=== PATIENT | female | born 1955 | race Two or more races ===

== ENCOUNTER 2025-03-28 13:36 | Inpatient (IN) | payer MEDICAID, OTHER ==
[~2025-03-28] VITALS: Ht 149.9 cm; Wt 41.6 kg
[2025-03-28 14:32] LABS: Hematocrit 40.3 % (36.0-46.0); Hemoglobin 13.8 g/dL (12.2-16.2); Mean Corpuscular Hemoglobin 31.1 pg (28.0-32.0); Mean Corpuscular Volume 90.8 fL (80.0-100.0); Nucleated Red Blood Cells % 0.0 %
[2025-03-28 14:44] LABS: Anion Gap 3 (5-15); Carbon Dioxide 31 mmol/L (20-31); Chloride 107 mmol/L (98-107); Potassium 4.4 mmol/L (3.5-5.1); Sodium 141 mmol/L (136-145)
[2025-03-28 14:45] LABS: Calcium 9.3 mg/dL (8.7-10.4)
[2025-03-28 14:50] LABS: BUN/Creatinine Ratio 10.4 (10.0-20.0); Glucose 83 mg/dL (74-106)
[2025-03-28 14:52] LABS: Blood Urea Nitrogen 7 mg/dL (9-23)
--- NOTE | 2025-03-28 14:55 | ED.PDOC ---
History of Present Illness HPI Comments 69 year old female presents to the ED with a chief complaint of generalized weakness onset months. Patient states she has been experiencing weakness and generalized body pain since COVID in 2019. 1 week ago, patient experienced a syncopal episode, since then has been experiencing dizziness, headache, symptoms have worsened, poor appetite. Denies fever, chills, nausea,vomiting, diarrhea, chest pain,shortness of breath, abdominal pain, dysuria. No other symptoms or modifying factors present at this time. Chief Complaint: General Weakness Time Seen by MD: 14:40 Reviewed Notes: Medications, Allergies Allergies: Coded Allergies: NO KNOWN ALLERGIES (Unverified , 03/28/25) Information Source: Patient, Relative Mode of Arrival: Ambulatory Severity: Moderate Timing: Months Duration: Since onset Prehospital treatment: None Past Medical History PAST MEDICAL HISTORY: Denies Surgical History: Denies all surgeries TROMBONE SLIDE ASSEMBLER History: No Pertinent TROMBONE SLIDE ASSEMBLER History Family History Family History: Reviewed,noncontributory to illness, No family hx of Cancer, No family hx of DM, No family hx of Heart chava, No family hx of HTN, No family hx ofKidney chava, No family hx of Liver chava, No family hx of Lung chava, No family hx of Stroke Social History Smoker: Non-Smoker Alcohol: Denies ETOH Use Drugs: Denies Drug Use Lives In: Home Constitutional: reports: weakness, others (generalized body pain); denies: chills, diaphoresis, fatigue, fever, malaise, sweats EENTM: denies: blurred vision, double vision, ear bleeding, ear discharge, ear drainage, ear pain, ear ringing, eye pain, eye redness, hearing loss, mouth pain, mouth swelling, nasal discharge, nose bleeding, nose congestion, nose pain, photophobia, tearing, throat pain, throat swelling, voice changes, others Respiratory: denies: cough, hemoptysis, orthopnea, SOB at rest, shortness of breath, SOB with excertion, stridor, wheezing, others Cardiovascular: denies: chest pain, dizzy spells, diaphoresis, Dyspnea on exertion, edema, irregular heart beat, left arm pain, lightheadedness, palpitations, PND, syncope, others Gastrointestinal: reports: poor appetite; denies: abdomen distended, abdominal pain, blood streaked bowels, constipated, diarrhea, dysphagia, difficulty swallowing, hematemesis, melena, nausea, poor fluid intake, rectal bleeding, rectal pain, vomiting, others Genitourinary: denies: abnormal vagina bleeding, burning, dyspareunia, dysuria, flank pain, frequency, hematuria, incontinence, pain, , vagina discharge, urgency, others Neurological: reports: dizziness, weakness; denies: fainting, headache, left sided numbness, left sided weakness, numbness, paresthesia, pre-existing deficit, right sided numbness, right sided weakness, seizure, speech problems, tingling, tremors, others Musculoskeletal: denies: back pain, gout, joint pain, joint swelling, muscle pain, muscle stiffness, neck pain, others Integumetry: denies: bruises, change in color, change in hair/nails, dryness, laceration, lesions, lumps, rash, wounds, others Allergic/Immunocompromised: denies: Difficulty Healing, Frequent Infections, Hives, Itching, others Hematologic/Lymphatic: denies: anemia, blood clots, easy bleeding, easy bruising, swollen glands, others Endocrine: denies: excessive hunger, excessive sweating, excessive thirst, excessive urination, flushing, intolerance to cold, intolerance to heat, unexplained weight gain, unexplained weight loss, others Psychiatric: denies: anxiety, bipolar disorder, depression, hopeless, panic disorder, schizophrenia, sleepless, suicidal, others All Other Systems: Reviewed and Negative Physical Exam General Appearance: Moderate Distress, Normal HEENT: Normal ENT Inspection, Pharynx Normal, TMs Normal Neck: Full Range of Motion, Non-Tender, Normal, Normal Inspection Respiratory: Chest Non-Tender, Lungs Clear, No Accessory Muscle Use, No R espiratory Distress, Normal Breath Sounds Cardiovascular: No Edema, No JVD, No Murmur, No Gallop, Normal Peripheral Pulses, Regular Rate/Rhythm Breast Exam: Deferred Gastrointestinal: No Organomegaly, Non Tender, No Pulsatile Mass, Normal Bowel Sounds, Soft Genitalia: Deferred Pelvic: Deferred Rectal: Deferred Extremities: No calf tenderness, Normal capillary refill, Normal inspection, Normal range of motion, Non-tender, No pedal edema Musculoskeletal : Apperance: Normal Neurologic: Alert, ems educator II-XII nml as Tested, No Motor Deficits, Normal Affect, Normal Mood, No Sensory Deficits Cerebellar Function: Normal Reflexes: Normal Skin: Dry, Normal Color, Warm Peripheral Pulses: 3+ Radial (R), 3+ Radial (L) Lymphatic: No Adenopathy Was a procedure done? Was a procedure done?: No Differential Dx Considerations may include: Anemia Electrolyte imbalance X-Ray, Labs, Meds, VS Vital Signs Date Time Temp Pulse Resp B/P (MAP) Pulse Ox O2 Delivery O2 Flow Rate FiO2 03/28/25 16:30 59 18 166/78 (107) 100 03/28/25 16:13 57 18 96 Room Air 03/28/25 13:46 78 03/28/25 13:37 97.8 76 20 177/94 96 97.8 Lab Test 03/28/25 15:04 03/28/25 14:16 Range/Units Troponin I High Sensitivity 131 *H 136 *H </=34 ng/L White Blood Count 5.5 4.4-10.8 10^3/uL Red Blood Count 4.44 4.0-5.20 10^6/uL Hemoglobin 13.8 12.2-16.2 g/dL Hematocrit 40.3 36.0-46.0 % Mean Corpuscular Volume 90.8 80.0-100.0 fL Mean Corpuscular Hemoglobin 31.1 28.0-32.0 pg Mean Corpuscular Hemoglobin Concent 34.3 32.0-36.0 g/dL Red Cell Distribution Width 13.5 11.8-14.3 % Platelet Count 191 140-450 10^3/uL Mean Platelet Volume 8.8 6.9-10.8 fL Neutrophils (%) (Auto) 60.6 37.0-80.0 % Lymphocytes (%) (Auto) 31.2 10.0-50.0 % Monocytes (%) (Auto) 6.5 0.0-12.0 % Eosinophils (%) (Auto) 1.2 0.0-7.0 % Basophils (%) (Auto) 0.5 0.0-2.0 % Neutrophils # (Auto) 3.4 1.6-8.6 10 ^3/uL Lymphocytes # (Auto) 1.7 0.4-5.4 10 ^3/uL Monocytes # (Auto) 0.4 0-1.3 10 ^3/uL Eosinophils # (Auto) 0.1 0-0.8 10 ^3/uL Basophils # (Auto) 0 0-0.2 10 ^3/uL Nucleated Red Blood Cells 0.0 % Sodium Level 141 136-145 mmol/L Potassium Level 4.4 3.5-5.1 mmol/L Chloride Level 107 98-107 mmol/L Carbon Dioxide Level 31 20-31 mmol/L Anion Gap 3 L 5-15 Blood Urea Nitrogen 7 L 9-23 mg/dL Creatinine 0.67 0.550-1.02 mg/dL Glomerular Filtration Rate Calc 95 >90 mL/min BUN/Creatinine Ratio 10.4 10.0-20.0 Serum Glucose 83 74-106 mg/dL Calcium Level 9.3 8.7-10.4 mg/dL Patient alert. Vitals stable. Vague symptoms. Answering questions. WBC within normal limits pain Hemoglobin within normal limits. Abdomen is soft nontender. Ambulating. No leg swelling. No chest pain. Cardiac marker elevated. Was given aspirin. Was given Lovenox. Explained to the patient. Continue monitoring. Time of 1ST Reevaluation: 15:10 Reevaluation 1ST: Improved Patient Education/Counseling: Diagnosis, Treatment, Prognosis Family Education/Counseling: Diagnosis, Treatment, Prognosis SEPSIS Sepsis Screen Date sepsis recognized/suspect: Mar 28, 2025 Time Sepsis recognized/suspect: 8 Recent Procedure: No On Antibiotic Therapy: No Respiratory Rate >20: No Heart Rate >90: No Temp<36 C (96.8 F) or >38.3 C: No SBP <90 or MAP <65 mmHG: No New Acute Mental Status Change: No Is the patient on CPAP, BIPAP,: No Physician Orders Electrocardigram (03/28/25 13:53) Urinalysis (03/28/25 13:55) Troponin-I Hs (03/28/25 16:55) Vital Signs Date Time Temp Pulse Resp B/P (MAP) Pulse Ox O2 Delivery O2 Flow Rate FiO2 03/28/25 16:30 59 18 166/78 (107) 100 03/28/25 16:13 57 18 96 Room Air 03/28/25 13:46 78 03/28/25 13:37 97.8 76 20 177/94 96 97.8 Laboratory Tests Test 03/28/25 14:16 White Blood Count 5.5 10^3/uL (4.4-10.8) Departure 1 Departure Time of Disposition: 15:31 Impression: Primary Impression: NSTEMI (non-ST elevated myocardial infarction) Disposition: 09 ADMITTED INPATIENT Admit to: Med Surg Condition: Guarded Critical Care Note Critical Care Time?: Yes (90 min-critical care time only) Stability Stability form required: No Heart Score Heart Score: Heart Score Response (Comments) Value History N/A 0 EKG N/A 0 Age N/A 0 Risk Factors N/A 0 Troponin N/A 0 Total 0 I personally scribed for ALINE PERERA MD ([email or web address]) on 03/28/25 at 14:54. Electronically submitted by Renata Teague ([email or web address]). ALINE PERERA MD Mar 28, 2025 14:54
[2025-03-28] MEDS: ENOXAPARIN SOD 60 MG/0.6 ML SYRINGE SC ONE (17:45)
[2025-03-28 19:10] LABS: Urine Protein, UAD TRACE (Negative)
--- NOTE | 2025-03-28 22:47 | DVHHPRES ---
History of Present Illness Resident Creating Document: EULALIO SALCEDO RESIDENT History of Present Illness Mathew Weaver is 69-year-old female with no significant past medical history presents to the ED with chief complaints of overall generalized weakness, 8/10 dull pain which is in the posterior side of neck radiating to bilateral legs, which increases while walking, decreases with rest. She states that with increased exertion there is increase in diffuse abdominal pain. Patient says she has had loss of appetite since 1 year, is nauseous most of the time, has a headache most days for which she takes Advil. Patient also states that she has a bowel movement every 3 days. She states that since 2019 after getting COVID, vaccinations patient has intense headaches and the pain would radiate from the neck to bilateral legs, she would lose balance, feels weak after taking a for a couple of steps. On arrival patient was hypotensive, troponins were elevated. Urinalysis shows signs of UTI. Patient is admitted for further management. Surgical history, denies Family history: Noncontributory Personal history: Patient smoked 3-4 cigarettes a day for more than 30 years, denies drinking, or Drug abuse Review of Systems Constitutional: Yes: Weakness; No: Fever, Chills, Sweats, Malaise, Other Eyes: No: Pain, Vision change, Conjunctivae inflammation, Eyelid inflammation, Other, Redness ENT: No: Ear pain, Ear discharge, Nose pain, Nose discharge, Nose congestion, Mouth pain, Mouth swelling, Throat pain, Throat swelling, Other Respiratory: No: Cough, Dry, Shortness of breath, SOB with excertion, Wheezing, Hemoptysis, Pleuritic Pain, Sputum, Wheezing, Other Cardiovascular: No: Chest Pain, Palpitations, Orthopnea, Paroxysmal Noc. Dyspnea, Edema, Lt Headedness, Other Gastrointestinal: Nausea, Abdominal Pain; No: Vomiting, Diarrhea, Constipation, Melena, Hematochezia, Other Genitourinary: No Dysuria, No Frequency, No Incontinence, No Hematuria, No Retention, No Other Musculoskeletal: neck pain, back pain, leg pain; No: other, shoulder pain, arm pain, hand pain, foot pain Skin: No: Rash, Lesions, Jaundice, Bruising, Other Neurological: No: Weakness, Numbness, Incoordination, Change in speech, Confusion, Seizures, Other Allergies: Coded Allergies: NO KNOWN ALLERGIES (Unverified , 03/28/25) Exam Vital Signs Vital Signs Date Time Temp Pulse Resp B/P (MAP) Pulse Ox O2 Delivery O2 Flow Rate FiO2 03/28/25 20:26 98.7 69 20 158/80 (106) 100 98.7 03/28/25 16:13 Room Air Exam General: Patient alert and oriented in person, place and time. Patient following commands. Moderate distress HEENT: Normocephalic, atraumatic, moist mucous membranes Respiratory/pulmonary: Clear lungs bilaterally, vesicular murmurs present in almost all lung shoemaker, no associated crackles or wheezes. Cardiovascular: Normal heart sounds S1 and S2 with no associated murmurs Abdomen: Abdomen nondistended, there is no pain to palpation in any of the abdominal quadrants, no palpable masses. Extremities: There is no peripheral edema present at the lower extremities. Peripheral Pulses: 3+ Radial (R). 3+ Radial (L). 3+ Dorsalis pedis (R). 3+ Dorsalis pedis(L) Skin: No rashes or pruritus, there is no sacral edema present at this time. Neurological: Intact cranial nerves with no focal neurologic deficits Labs/Xrays Labs Test 03/28/25 18:52 03/28/25 17:27 03/28/25 14:16 Range/Units Urine Color Yellow Yellow Urine Clarity Clear Clear Urine pH 6.5 5.0-9.0 Urine Specific [place] 1.020 1.001-1.035 Urine Protein Trace H Negative Urine Ketones Negative Negative Urine Blood 1+ H Negative /uL Urine Nitrite Negative Negative Urine Bilirubin Negative Negative Urine Urobilinogen 2 H Negative mg/dL Urine Leukocyte Esterase 1+ Negative /uL Urine RBC 12 0 - 4 /hpf Urine Microscopic WBC 2 0-5 /HPF Urine Squamous Epithelial Cells Few <5 /hpf Urine Bacteria Few H None Seen /hpf Urine Mucus Few None Seen Urine Glucose Normal Normal mg/dL Troponin I High Sensitivity 145 *H </=34 ng/L White Blood Count 5.5 4.4-10.8 10^3/uL Red Blood Count 4.44 4.0-5.20 10^6/uL Hemoglobin 13.8 12.2-16.2 g/dL Hematocrit 40.3 36.0-46.0 % Mean Corpuscular Volume 90.8 80.0-100.0 fL Mean Corpuscular Hemoglobin 31.1 28.0-32.0 pg Mean Corpuscular Hemoglobin Concent 34.3 32.0-36.0 g/dL Red Cell Distribution Width 13.5 11.8-14.3 % Platelet Count 191 140-450 10^3/uL Mean Platelet Volume 8.8 6.9-10.8 fL Neutrophils (%) (Auto) 60.6 37.0-80.0 % Lymphocytes (%) (Auto) 31.2 10.0-50.0 % Monocytes (%) (Auto) 6.5 0.0-12.0 % Eosinophils (%) (Auto) 1.2 0.0-7.0 % Basophils (%) (Auto) 0.5 0.0-2.0 % Neutrophils # (Auto) 3.4 1.6-8.6 10 ^3/uL Lymphocytes # (Auto) 1.7 0.4-5.4 10 ^3/uL Monocytes # (Auto) 0.4 0-1.3 10 ^3/uL Eosinophils # (Auto) 0.1 0-0.8 10 ^3/uL Basophils # (Auto) 0 0-0.2 10 ^3/uL Nucleated Red Blood Cells 0.0 % Sodium Level 141 136-145 mmol/L Potassium Level 4.4 3.5-5.1 mmol/L Chloride Level 107 98-107 mmol/L Carbon Dioxide Level 31 20-31 mmol/L Anion Gap 3 L 5-15 Blood Urea Nitrogen 7 L 9-23 mg/dL Creatinine 0.67 0.550-1.02 mg/dL Glomerular Filtration Rate Calc 95 >90 mL/min BUN/Creatinine Ratio 10.4 10.0-20.0 Serum Glucose 83 74-106 mg/dL Calcium Level 9.3 8.7-10.4 mg/dL SEPSIS Sepsis Screen Date sepsis recognized/suspect: Mar 28, 2025 Time Sepsis recognized/suspect: 2026 Recent Procedure: No On Antibiotic Therapy: No Respiratory Rate >20: No Heart Rate >90: No Temp<36 C (96.8 F) or >38.3 C: No SBP <90 or MAP <65 mmHG: No New Acute Mental Status Change: No Is the patient on CPAP, BIPAP,: No Physician Orders Electrocardigram (03/28/25 17:33) Vital Signs Date Time Temp Pulse Resp B/P (MAP) Pulse Ox O2 Delivery O2 Flow Rate FiO2 03/28/25 20:26 98.7 69 20 158/80 (106) 100 98.7 03/28/25 16:30 59 18 166/78 (107) 100 03/28/25 16:13 57 18 96 Room Air Laboratory Tests Test 03/28/25 14:16 White Blood Count 5.5 10^3/uL (4.4-10.8) Medications Medications Dose Ordered Sig/Leah Route Start Time Stop Time Status Last Admin Dose Admin Aspirin 325 mg ONCE ONCE PO 03/28/25 17:45 03/28/25 17:46 DC 03/28/25 17:45 325 MG Enoxaparin Sodium 50 mg ONCE ONCE SC 03/28/25 17:45 03/28/25 17:46 DC 03/28/25 17:45 50 MG Assessment/Plan Assessment/Plan Assessment and plan # hypertension crisis - EKG - IV enalaprilat - aspirin - atorvastatin - UA, CXR., consider Echo # NSTEMI type 2, type 1 not ruled out # demand ischemia due to hypertension - EKG - IV enalaprilat - aspirin - atorvastatin - carotid ultrasound, pending # microscopic hematuria ? Nephritis -ordered protein/creatinine ratio -kidney function # Tobacco use disorder -counselled for cessation # Cervicalgia -neck xray Plan discussed with: Patient Date of Service: Mar 28, 2025 Billing Provider: EULALIO SALCEDO Common Visit Codes: [id number] INP/OBS CARE (HIGH) Secondary Visit Codes: [id number] CARE PLAN 30 MINUTES EULALIO SALCEDO Mar 28, 2025 22:47 CATHIE MANJARREZ Mar 29, 2025 08:14 YESENIA PAGE MD Mar 29, 2025 19:35
[2025-03-28 23:49] VITALS: PULSE 60; RESP 20; O2SAT 97
[2025-03-29] VITALS (8 sets, daily range): BP systolic 118–166; BP diastolic 58–78; PULSE 44–68; RESP 16; TEMP 97.8–98.2; O2SAT 94–97
[2025-03-29 00:53] LABS: Alanine Aminotransferase 36 U/L (7-40); Albumin 3.9 g/dL (3.2-4.8); Alkaline Phosphatase 68 U/L (46-116); Total Protein 7.0 g/dL (5.7-8.2)
[2025-03-29 00:57] LABS: Bilirubin, Total 0.3 mg/dL (0.2-1.0)
[2025-03-29 01:44] LABS: Triglycerides 133 mg/dL (< 150)
[2025-03-29 01:45] LABS: Cholesterol 152 mg/dL (< 200)
[2025-03-29] MEDS: ENALAPRILAT 1.25 MG/ML-1ML VIAL IV ONE (01:45)
[2025-03-29] MEDS: ATORVASTATIN 20 MG TAB PO ONE (01:45)
[2025-03-29 01:46] LABS: Bilirubin, Direct < 0.1 mg/dL (<0.3); HDL Cholesterol 39 mg/dL (40-59)
[2025-03-29 02:19] LABS: INR 1.03 (0.9-1.15); Partial Thromboplastin Time 35.5 SEC (24.5-34.5); Prothrombin Time 10.9 sec (9.3-11.8)
[2025-03-29 02:28] LABS: Potassium 3.8 mmol/L (3.5-5.1); Sodium 142 mmol/L (136-145)
[2025-03-29 02:29] LABS: Anion Gap 6 (5-15); Calcium 8.8 mg/dL (8.7-10.4); Carbon Dioxide 28 mmol/L (20-31)
[2025-03-29 02:30] LABS: Chloride 108 mmol/L (98-107)
[2025-03-29 02:34] LABS: BUN/Creatinine Ratio 15.6 (10.0-20.0); Blood Urea Nitrogen 10 mg/dL (9-23); Glucose 113 mg/dL (74-106)
--- NOTE | 2025-03-29 03:52 | DVH ---
CHEST RADIOGRAPH Indication: htn Technique: Single frontal view of the chest was obtained COMPARISON: None FINDINGS: Lines and Tubes: None Lungs: Clear Pleura: No effusion. No pneumothorax. Cardiomediastinal contours: Unremarkable Bones: Unremarkable IMPRESSION: 1. No acute disease.
[2025-03-29 08:52] LABS: Urine Protein, UAD Negative (Negative)
[2025-03-29 09:02] LABS: Protein, Urine 18.4 mg/dL (1-14)
[2025-03-29 09:04] LABS: Amphetamine Screen, Urine Neg (NEGATIVE); Barbiturate Scree,Urine Neg (NEGATIVE); Benzodiazephine Screen, Urine Neg (NEGATIVE); Cannabinoid Screen, Urine Neg (NEGATIVE); Cocaine Screen, Urine Neg (NEGATIVE); Opiate Scree,Urine Neg (NEGATIVE); Phencyclidine Screen, Urine Neg (NEGATIVE)
--- NOTE | 2025-03-29 09:46 | DVH ---
INDICATION: neck pain COMPARISON: None TECHNIQUE: 3 views of the cervical spine were obtained. FINDINGS: Reversal of the cervical spine. Mild retrolisthesis of C4 on C5. The predental space is normal. Moderate multilevel degenerative disc disease of the cervical spine. No acute fracture, vertebral compression deformity or aggressive osseous lesions. The imaged lung apices are unremarkable. IMPRESSION: No acute fracture. Moderate multilevel degenerative disc disease of the cervical spine.
--- NOTE | 2025-03-29 09:58 | ECG ---
[facility] Test Date: 2025-03-29 Test Time: 02:29:35 Pat Name: HOU Department: Room: 0290T A Gender: F Nutrition Representative: MICHELLE : 1955 Requested By: ALINE PERERA Order Number: [id number] Reading MD: Jose Ballesteros Measurements Intervals [place] Rate: 65 P: -89 ND: 125 QRS: 11 QRSD: 108 T: 20 QT: 471 QTc: 490 Interpretive Statements Sinus or ectopic atrial rhythm Probable anteroseptal infarct, old Electronically Signed On 04-04-2025 19:07:11 PDT by Jose Ballesteros Please click the below link to view image of tracing.
--- NOTE | 2025-03-29 09:59 | ECG ---
[facility] Test Date: 2025-03-28 Test Time: 13:46:18 Pat Name: HOU Department: [facility] ED Room: 0290T A Gender: F Flute Grinder: dc : 1955 Requested By: BEULAH DALAL Order Number: [id number] Reading MD: Jose Ballesteros Measurements Intervals [place] Rate: 78 P: 0 IL: 113 QRS: 106 QRSD: 106 T: 23 QT: 402 QTc: 458 Interpretive Statements Sinus rhythm Borderline short [place] interval Lateral infarct, age indeterminate Probable anteroseptal infarct, old Baseline wander in lead(s) II,III,aVR,aVL,aVF,V1,V2 Electronically Signed On 04-04-2025 19:00:39 PDT by Jose Ballesteros Please click the below link to view image of tracing.
--- NOTE | 2025-03-29 10:14 | DVH ---
Carotid Duplex Date: 03/29/2025 07:07 AM Clinical History: uncontrolled htn Comparison: None Technique: Duplex Doppler evaluation of the extracranial carotid and vertebral arteries including col or Doppler and spectral/pulsed waveform analysis was performed. Findings: Velocities and ratios within normal limits. IMPRESSION: No hemodynamically significant stenosis noted in the right carotid system. No hemodynamically significant stenosis noted in the left carotid system. Reference: Radiology 2003; 229:[id number]
[2025-03-29 11:02] LABS: Hematocrit 35.8 % (36.0-46.0); Hemoglobin 12.2 g/dL (12.2-16.2); Mean Corpuscular Hemoglobin 31.0 pg (28.0-32.0); Mean Corpuscular Volume 91.3 fL (80.0-100.0); Nucleated Red Blood Cells % 0.1 %
[2025-03-29 11:15] LABS: Alanine Aminotransferase 30 U/L (7-40); Albumin 3.4 g/dL (3.2-4.8); Alkaline Phosphatase 57 U/L (46-116); Anion Gap 4 (5-15); BUN/Creatinine Ratio 15.9 (10.0-20.0); Blood Urea Nitrogen 10 mg/dL (9-23); Calcium 8.8 mg/dL (8.7-10.4); Carbon Dioxide 27 mmol/L (20-31); Cholesterol 140 mg/dL (< 200); Glucose 99 mg/dL (74-106); INR 1.03 (0.9-1.15); Magnesium 1.9 mg/dL (1.6-2.6); Partial Thromboplastin Time 31.0 SEC (24.5-34.5); Potassium 3.7 mmol/L (3.5-5.1); Prothrombin Time 10.9 sec (9.3-11.8); Sodium 141 mmol/L (136-145); Total Protein 6.3 g/dL (5.7-8.2); Triglycerides 132 mg/dL (< 150)
[2025-03-29 11:16] LABS: Bilirubin, Total 0.4 mg/dL (0.2-1.0); Chloride 110 mmol/L (98-107); HDL Cholesterol 36 mg/dL (40-59)
--- NOTE | 2025-03-29 13:14 | DVH ---
CT HEAD WITHOUT CONTRAST Indication: syncope EXAM DATE: 03/29/2025 11:47 AM COMPARISON: None TECHNIQUE: CT of the head without intravenous contrast. RADIATION DOSE: CTDIvol: 53.44 mGy, DLP: 965 mGy*cm FINDINGS: There is no intracranial hemorrhage. There is no extra-axial fluid, mass, mass effect or midline shif t. The ventricles are midline and normal in size. Basilar cisterns are patent. Mild periventricular a nd subcortical white matter chronic microvascular ischemic changes. The paranasal sinuses and mastoids are well-pneumatized. Imaged portion of the orbits are unremarkabl e. IMPRESSION: No intracranial hemorrhage or mass effect.
--- NOTE | 2025-03-29 17:19 | DVHPNRES ---
Progress Note Date Seen: Mar 29, 2025 Resident Creating Document: RAMÍREZ CORONEL RESIDENT Medical Necessity Reason Pt with a Central, PICC or Fol: No Subjective Review of Systems A 69-year-old female with newly diagnosed hypertension presents to the ER with complaints of neck pain that radiates back and lower body, she reports having weakness. She believes she started having these symptoms after receiving COVID- 19 vaccination 2 weeks ago. The patient reports losing 40 lbs over a period of 7 months. She has a dysphagia, loss of appetite. She also reports having headache associated with vomiting. She also reports having an episode of syncope 1 week ago while going to the bathroom. She denies any chest pain, shortness of breath, fever or any other complaints. She has never done screening colonoscopy or mammography. Past medical history: Nothing significant according to patient Past surgical history: Cholecystectomy Family history: Multiple first-degree relatives have stomach, lung and kidney cancers Home medications: Nothing Smoking history: Smoking since last 30 years, half a pack a day. Denies any drugs, alcohol abuse Code status: DNR DNI The patient was seen and examined at bedside. Overnight events were reviewed. Reports having mild headache and neck pain. She denies any chest pain, shortness of breath, fever or any other complaints today. Objective vital signs Vital Sign Date Time Temp Pulse Resp B/P (MAP) Pulse Ox O2 Delivery O2 Flow Rate FiO2 03/29/25 13:00 97.8 59 16 134/68 (90) 97 97.8 03/29/25 08:00 Room Air* 0 21 Total Intake and Output 03/28/25 03/28/25 03/29/25 15:00 23:00 07:00 Intake Total 0 ml Balance 0 ml medications Current Medications Medications Dose Ordered Sig/Leah Route Start Time Stop Time Status Last Admin Dose Admin Aspirin 81 mg DAILY PO 03/29/25 10:00 03/29/25 09:50 81 MG Atorvastatin Calcium 40 mg HS PO 03/29/25 22:00 Examination Pt is lying on bed General Appearance: Alert, Oriented X3, Cooperative, Mild distress HEENT: Atraumatic, Mucous membranes moist/pink Respiratory: Clear to auscultation, Normal air movement, No added sounds Cardiovascular: Regular rate, Normal S1, split S2, No murmurs Abdominal/ : Active bowel sounds, Soft, no distention, no tenderness Extremities: No edema, Normal pulses, No tenderness/swelling Skin: No Significant rash, except past surgical scars Neuro: Normal speech, sensorimotor deficits none Psych/Mental Status: Mental status NL, Mood NL Nurse was there as backup administrator during examination laboratory and microbiology Laboratory Tests 03/29/25 10:00 Test 03/29/25 10:00 Range/Units Serum Glucose 99 74-106 mg/dL Problem List/Assessment/Plan Problem List/Assessment/Plan Hypertensive crisis NSTEMI rule out type I Syncope Junctional rhythm EKG: Junctional rhythm Troponins elevated Aspirin, atorvastatin IV enalaprilat for hypertension management Electrolytes normal today Evaluate the cause for junctional rhythm including drugs, sick sinus syndrome, ischemia, electrolyte abnormalities, sarcoidosis, amyloidosis. Monitor labs and continue further workup. Carotid ultrasound negative Head CT: Negative Orthostatic vitals ordered Chronic neck pain Cervical spine x-ray: No acute fracture. Moderate multilevel degenerative disc disease of the cervical spine Pain management with Tylenol prn Microscopic hematuria Protein: Creatinine 0.24 normal Urine total protein: 18 high Monitor renal functions Hyperglycemia HbA1c 5.2 Monitor labs Tobacco smoking Counseled for 14 minutes regarding cessation Severe malnutrition BMI of 18.5 Patient presents unintentional weight loss of approximately 30 lb in the past three months, secondary to loss of appetite and dysphagia Patient asked to follow up with PCP to rule out malignancy particularly gastric cancer GI prophylaxis: Pantoprazole DVT prophylaxis: Enoxaparin Diet: Cardiac Goals of care discussed with the patient for more than 27 minutes: Full code status Case discussed with Dr. Flores, patient and RN Plan discussed with: Patient, Other My Orders My Orders Orders - RAMÍREZ CORONEL RESIDENT Procedure Category Date Status Time Head Without Contrast CT 03/29/25 Resulted 11:06 Date of Service: Mar 29, 2025 Billing Provider: DALLAS FLORES MD Common Visit Codes: [id number] INP/OBS CARE(HIGH) RAMÍREZ CORONEL RESIDENT Mar 29, 2025 17:19 LB ARMSTRONG RESIDENT Apr 02, 2025 08:12 DALLAS FLORES MD Apr 02, 2025 10:20
[2025-03-29] MEDS: ATORVASTATIN 20 MG TAB PO SCH (21:44)
[2025-03-30] VITALS (9 sets, daily range): BP systolic 132–163; BP diastolic 57–87; PULSE 60–76; RESP 16–17; TEMP 97.4–98.4; O2SAT 94–98
[2025-03-30 07:22] LABS: Calcium 9.1 mg/dL (8.7-10.4)
[2025-03-30 07:23] LABS: Anion Gap 5 (5-15); Carbon Dioxide 26 mmol/L (20-31); Potassium 3.8 mmol/L (3.5-5.1); Sodium 141 mmol/L (136-145)
[2025-03-30 07:29] LABS: BUN/Creatinine Ratio 13.8 (10.0-20.0); Blood Urea Nitrogen 9 mg/dL (9-23); Glucose 80 mg/dL (74-106)
[2025-03-30 07:30] LABS: Hematocrit 33.7 % (36.0-46.0); Hemoglobin 11.7 g/dL (12.2-16.2); Mean Corpuscular Hemoglobin 31.9 pg (28.0-32.0); Mean Corpuscular Volume 91.6 fL (80.0-100.0); Nucleated Red Blood Cells % 0.0 %
[2025-03-30 07:52] LABS: Chloride 110 mmol/L (98-107)
[2025-03-30] MEDS: ENOXAPARIN SOD 40 MG/0.4 ML SYRINGE SC SCH (10:16)
[2025-03-30] MEDS: PANTOPRAZOLE 40 MG/10 ML VIAL INJ IV SCH (10:16)
--- NOTE | 2025-03-30 10:44 | DVH ---
Indication: Claudication Technique: Real- time ultrasound images of the bilateral lower extremity with grayscale, color, and spectral wave Doppler. Comparison: None Findings: Biphasic/triphasic waveforms right [employer], SFA, popliteal artery. Monophasic waveform right posterior t ibial artery. Biphasic waveform right anterior tibial artery. Monophasic waveform left [employer]. Biphasi c/ triphasic waveform left SFA, popliteal arteries. Monophasic waveform left anterior tibial artery. [id number] atherosclerotic plaque bilaterally. Peak systolic velocities are as follows (in cm/s): Right: Common femoral artery: 96 Profunda femoris: 61 Proximal superficial femoral: 114 Mid superficial femoral artery: 90 Distal superficial femoral artery: 92 Popliteal artery: 67 Posterior tibial artery: 78 Anterior tibial artery: 51 Dorsalis pedis artery: 34 Left: Common femoral artery: 138 Profunda femoris: 48 Proximal superficial femoral: 108 Mid superficial femoral artery: 67 Distal superficial femoral artery: 70 Popliteal artery: 73 Posterior tibial artery: 82 Anterior tibial artery: 44 Dorsalis pedis artery: 37 Impression: Findings suggestive of moderate grade stenosis within the left [employer]. This can be further characterized with CT angiogram of the lower extremities. Hemodynamically significant stenosis within the right posterior tibial artery, left anterior tibial a rtery.
--- NOTE | 2025-03-30 14:31 | DVHINCON2 ---
JORGE SAINI [facility] 03/30/25 1431: Date Seen: Mar 30, 2025 Referring Physician MD [place] resident Reason for Consultation Junctional rhythm, rule out ischemia History of Present Illness This is a Welsh-speaking 69-year-old female patient who presents to the emergency room with chief complaint of generalized weakness, neck pain, and abdominal pain. Cardiology has been consulted at this time for junctional rhythm. Initial twelve lead electrocardiogram reveals a junctional rhythm with Q-waves seen in anteroseptal leads. Initial troponin level of 136ng/L with peak level of 188ng/L. The patient denies any cardiac symptoms such as chest pain, palpitations, or shortness of breath. She denies any significant past medical history except for smoking. She also admits that she never goes to the doctors nor has a primary care physician. Of note, blood pressure readings reached as high as 182/83 upon arrival. She also mentions a 30 lb weight loss in the last three months. Past Medical History Past medical history reviewed. No other significant than mentioned above. Past Surgical History Cholecystectomy Family History: FH: cancer G8 MOTHER Family History Family history reviewed. Social History Patient has a 20 pack-year history, smokes approximately half a pack per day Denies illicit drug use Denies alcohol use Allergies: Coded Allergies: NO KNOWN ALLERGIES (Unverified , 03/28/25) Home Meds No Active Prescriptions or Reported Meds Home Meds Denies taking any prescribed medications Current Medications Current Medications Medications (Trade) Dose Ordered Sig/Leah Route PRN Reason Start Time Stop Time Status Last Admin Atorvastatin Calcium (Lipitor) 40 mg HS PO 03/29/25 22:00 03/29/25 21:44 Pantoprazole Sodium (Protonix) 40 mg DAILY IV 03/30/25 10:00 03/30/25 10:16 Enoxaparin Sodium (Lovenox) 40 mg DAILY SC 03/30/25 10:00 03/30/25 10:16 Review of Systems Constitutional: Generalized weakness Ears, Nose, & Throat: No symptom reported Eyes: No symptom reported Neurological: Neck and headache Pulmonary/Respiratory: No symptoms reported Cardiovascular: No symptom reported Gastrointestinal: Abdominal pain Genitourinary: No symptom reported Musculoskeletal: No symptom reported Skin: No symptom reported Psychiatric: No symptom reported Endocrine: No symptom reported Hematologic/Lymphatic: No symptom reported Vital Signs Vital Signs Date Time Temp Pulse Resp B/P (MAP) Pulse Ox O2 Delivery O2 Flow Rate FiO2 03/30/25 09:00 98.4 60 17 142/76 (98) 96 98.4 03/30/25 08:30 Room Air* 0 21 Physical Exam General Appearance: Cooperative. Thin Pulmonary/Respiratory: Clear, bilateral breaths sounds. Cardiovascular/Chest: Regular rate and rhythm. Peripheral Pulses: 2+ Radial (R). 2+ Radial (L). 2+ Pedal (R). 2+ Pedal (L) Abdominal Exam: Normal bowel sounds. Ankle Exam: Negative ankle edema Lower extremities: Negative lower extremity edema Neuro/Mental Status: A/OX4, coherent. Thoughts/Psych: Normal thought pattern. Appropriate mood and affect. Good judgment and insight. Appearance: No acute distress. Skin Exam: Normal inspection. Normal color. Warm and dry. Labs/Diagnostic Data Labs Test 03/30/25 05:54 03/29/25 10:00 03/29/25 08:52 03/29/25 08:20 Range/Units White Blood Count 5.1 4.4-10.8 10^3/uL Red Blood Count 3.68 L 4.0-5.20 10^6/uL Hemoglobin 11.7 L 12.2-16.2 g/dL Hematocrit 33.7 L 36.0-46.0 % Mean Corpuscular Volume 91.6 80.0-100.0 fL Mean Corpuscular Hemoglobin 31.9 28.0-32.0 pg Mean Corpuscular Hemoglobin Concent 34.8 32.0-36.0 g/dL Red Cell Distribution Width 13.4 11.8-14.3 % Platelet Count 165 140-450 10^3/uL Mean Platelet Volume 9.3 6.9-10.8 fL Neutrophils (%) (Auto) 49.7 37.0-80.0 % Lymphocytes (%) (Auto) 37.0 10.0-50.0 % Monocytes (%) (Auto) 9.1 0.0-12.0 % Eosinophils (%) (Auto) 3.8 0.0-7.0 % Basophils (%) (Auto) 0.4 0.0-2.0 % Neutrophils # (Auto) 2.5 1.6-8.6 10 ^3/uL Lymphocytes # (Auto) 1.9 0.4-5.4 10 ^3/uL Monocytes # (Auto) 0.5 0-1.3 10 ^3/uL Eosinophils # (Auto) 0.2 0-0.8 10 ^3/uL Basophils # (Auto) 0 0-0.2 10 ^3/uL Nucleated Red Blood Cells 0.0 % Sodium Level 141 136-145 mmol/L Potassium Level 3.8 3.5-5.1 mmol/L Chloride Level 110 H 98-107 mmol/L Carbon Dioxide Level 26 20-31 mmol/L Anion Gap 5 5-15 Blood Urea Nitrogen 9 9-23 mg/dL Creatinine 0.65 0.550-1.02 mg/dL Glomerular Filtration Rate Calc 95 >90 mL/min BUN/Creatinine Ratio 13.8 10.0-20.0 Serum Glucose 80 74-106 mg/dL Calcium Level 9.1 8.7-10.4 mg/dL Prothrombin Time 10.9 9.3-11.8 sec Prothrombin Time INR 1.03 0.9-1.15 Activated Partial Thromboplast Time 31.0 24.5-34.5 SEC Hemoglobin A1c 5.2 <5.7 % A1C Lactic Acid Level 1.4 0.4-2.0 mmol/L Phosphorus Level 3.3 2.4-5.1 mg/dL Magnesium Level 1.9 1.6-2.6 mg/dL Total Bilirubin 0.4 0.2-1.0 mg/dL Aspartate Amino Transferase (AST) 39 13-40 U/L Alanine Aminotransferase (ALT) 30 7-40 U/L Alkaline Phosphatase 57 46-116 U/L Total Protein 6.3 5.7-8.2 g/dL Albumin 3.4 3.2-4.8 g/dL Triglycerides Level 132 < 150 mg/dL Cholesterol Level 140 < 200 mg/dL LDL Cholesterol 87 < 100 mg/dL HDL Cholesterol 36 L 40-59 mg/dL Vitamin B12 Level 531 211-911 pg/mL Vitamin D 25-Hydroxy 25.9 L 30.0-100 ng/mL Thyroid Stimulating Hormone (TSH) 2.13 0.55-4.78 uIU/mL Urine Opiates Screen Neg NEGATIVE Urine Fentanyl Screen Neg NEGATIVE Urine Barbiturates Screen Neg NEGATIVE Urine Phencyclidine Screen Neg NEGATIVE Urine Amphetamines Screen Neg NEGATIVE Urine Benzodiazepines Screen Neg NEGATIVE Urine Cocaine Screen Neg NEGATIVE Urine Cannabinoids Screen Neg NEGATIVE Urine Color Light-yellow Yellow Urine Clarity Clear Clear Urine pH 7.0 5.0-9.0 Urine Specific Lefors 1.016 1.001-1.035 Urine Protein Negative Negative Urine Ketones Negative Negative Urine Blood Trace H Negative /uL Urine Nitrite Negative Negative Urine Bilirubin Negative Negative Urine Urobilinogen Normal Negative mg/dL Urine Leukocyte Esterase 1+ Negative /uL Urine RBC 15 0 - 4 /hpf Urine Microscopic WBC 1 0-5 /HPF Urine Squamous Epithelial Cells Few <5 /hpf Urine Bacteria None seen None Seen /hpf Urine Mucus Few None Seen Urine Creatinine 78.29 30.0-125.0 mg/dL Urine Protein/Creatinine Ratio 0.24 Urine Glucose Normal Normal mg/dL Urine Total Protein 18.4 H 1-14 mg/dL Test 03/29/25 03:37 03/29/25 00:25 Range/Units Troponin I High Sensitivity 188 *H </=34 ng/L Direct Bilirubin < 0.1 <0.3 mg/dL B-Type Natriuretic Peptide 175.34 0-100 pg/mL Assessment NSTEMI Hypertensive urgency Junctional rhythm Rule out structural heart disease Tobacco use Plan/Recommendation We will continue with the following plan/recommendations (Dr. Craft): Patient seen and examined at bedside with . Given elevated troponin level, twelve lead electrocardiogram, and newly diagnosed comorbidities, we will schedule the patient to undergo a nuclear stress test. Plan discussed with the patient, who is agreeable. In the meantime, continue with blood pressure control, and avoid beta-blockers at this time given junctional rhythm. Continue with close cardiac surveillance. Notify cardiology team immediately for any ECG changes. Thank you for allowing us to care for this patient. Please call with any questions or concerns. Critical care time spent: 44 minutes This medical document was created using an electronic medical record system with voice recognition software and computerized dictation system. Although this document has been carefully reviewed, there might still be some phonetic and typographical errors. Occasional wrong-word or ``sound-alike substitutions may have occurred due to the inherent limitations of voice recognition software. These areas are purely typographical due to imperfections of the software programs and do not reflect any compromise in the patient's medical care. Please read the chart carefully and recognize, using context, where these substitutions have occurred. Plan discussed with: Patient NYHA Physical activity limitations: NA Date of Service: Mar 30, 2025 Billing Provider: JORGE SAINI Cardiology Common Codes: [id number] INP/OBS CARE (High) Cardiology Consultation Codes: [id number] CONSULT <45MIN DANIEL CRAFT MD 03/30/25 1433: Family History: FH: cancer G8 MOTHER Allergies: Coded Allergies: NO KNOWN ALLERGIES (Unverified , 03/28/25) Home Meds No Active Prescriptions or Reported Meds Plan/Recommendation jucntional rhythm severe htn pt very frail, doesnt see MD, lost lot of weight consider cancer workup stress mpi JORGE SAINI Mar 30, 2025 14:31 DANIEL CRAFT MD Mar 30, 2025 14:33
[2025-03-30] MEDS ORDERED: hydrALAZINE HCL 20 MG/ML VL IV PRN (14:45)
--- NOTE | 2025-03-30 21:00 | DVHPNRES ---
Progress Note Date Seen: Mar 30, 2025 Resident Creating Document: RAMÍREZ CORONEL RESIDENT Medical Necessity Reason Pt with a Central, PICC or Fol: No Subjective Review of Systems A 69-year-old female with newly diagnosed hypertension presents to the ER with complaints of neck pain that radiates back and lower body, she reports having weakness. She believes she started having these symptoms after receiving COVID- 19 vaccination 2 weeks ago. The patient reports losing 40 lbs over a period of 7 months. She has a dysphagia, loss of appetite. She also reports having headache associated with vomiting. She also reports having an episode of syncope 1 week ago while going to the bathroom. She denies any chest pain, shortness of breath, fever or any other complaints. She has never done screening colonoscopy or mammography. Past medical history: Nothing significant according to patient Past surgical history: Cholecystectomy Family history: Multiple first-degree relatives have stomach, lung and kidney cancers Home medications: Nothing Smoking history: Smoking since last 30 years, half a pack a day. Denies any drugs, alcohol abuse Code status: DNR DNI The patient was seen and examined at bedside. Overnight events were reviewed. She reports improvement in her symptoms. She denies any chest pain, shortness of breath, fever or any other complaints today. Objective vital signs Vital Sign Date Time Temp Pulse Resp B/P (MAP) Pulse Ox O2 Delivery O2 Flow Rate FiO2 03/30/25 16:35 98.1 76 17 132/74 (93) 96 98.1 03/30/25 08:30 Room Air* 0 21 Total Intake and Output 03/29/25 03/29/25 03/30/25 15:00 23:00 07:00 Intake Total 500 ml 600 ml Balance 500 ml 600 ml medications Current Medications Medications Dose Ordered Sig/Leah Route Start Time Stop Time Status Last Admin Dose Admin Aspirin 81 mg DAILY PO 03/29/25 10:00 03/30/25 10:18 81 MG Atorvastatin Calcium 40 mg HS PO 03/29/25 22:00 03/29/25 21:44 40 MG Pantoprazole Sodium 40 mg DAILY IV 03/30/25 10:00 03/30/25 10:16 40 MG Enoxaparin Sodium 40 mg DAILY SC 03/30/25 10:00 03/30/25 10:16 40 MG Losartan Potassium 25 mg DAILY PO 03/31/25 10:00 Hydralazine HCl 10 mg Q6HP PRN IV 03/30/25 14:45 Examination Pt is lying on bed General Appearance: Alert, Oriented X3, Cooperative, Mild distress HEENT: Atraumatic, Mucous membranes moist/pink Respiratory: Clear to auscultation, Normal air movement, No added sounds Cardiovascular: Regular rate, Normal S1, split S2, No murmurs Abdominal/ : Active bowel sounds, Soft, no distention, no tenderness Extremities: No edema, Normal pulses, No tenderness/swelling Skin: No Significant rash, except past surgical scars Neuro: Normal speech, sensorimotor deficits none Psych/Mental Status: Mental status NL, Mood NL Nurse was there as web marketing specialist during examination laboratory and microbiology Laboratory Tests 03/30/25 05:54 Test 03/30/25 05:54 Range/Units Serum Glucose 80 74-106 mg/dL Labs and/or images reviewed: Labs reviewed by me, Image(s) reviewed by me Problem List/Assessment/Plan Problem List/Assessment/Plan Hypertensive crisis NSTEMI rule out type I Syncope Junctional rhythm EKG: Junctional rhythm Troponins elevated Aspirin, atorvastatin IV enalaprilat for hypertension management Electrolytes normal today Evaluate the cause for junctional rhythm including drugs, sick sinus syndrome, ischemia, electrolyte abnormalities, sarcoidosis, amyloidosis. Monitor labs and continue further workup. Carotid ultrasound negative Head CT: Negative Orthostatic vitals ordered Chronic neck pain Cervical spine x-ray: No acute fracture. Moderate multilevel degenerative disc disease of the cervical spine Pain management with Tylenol prn Microscopic hematuria Protein: Creatinine 0.24 normal Urine total protein: 18 high Monitor renal functions Hyperglycemia HbA1c 5.2 Monitor labs Tobacco smoking Counseled for 14 minutes regarding cessation Severe malnutrition BMI of 18.5 Patient presents unintentional weight loss of approximately 30 lb in the past three months, secondary to loss of appetite and dysphagia Patient asked to follow up with PCP to rule out malignancy particularly gastric cancer GI prophylaxis: Pantoprazole DVT prophylaxis: Enoxaparin Diet: Cardiac Goals of care discussed with the patient for more than 27 minutes: Full code status Case discussed with Dr. Flores, patient and RN Plan discussed with: Patient My Orders My Orders Orders - RAMÍREZ CORONEL Procedure Category Date Status Time Orthostatic Vital ORDERS 03/29/25 Transmitted Signs 21:22 Pantoprazole PHA 03/30/25 In Process (Protonix) 10:00 Enoxaparin Sodium PHA 03/30/25 In Process (Lovenox) 10:00 Bilat Low Ext Art US 03/30/25 Resulted Duplex 07:00 * Cardiology Consult CONS 03/30/25 Transmitted 09:32 Date of Service: Mar 30, 2025 Billing Provider: DALLAS FLORES MD Common Visit Codes: [id number] INP/OBS CARE(HIGH) RAMÍREZ CORONEL RESIDENT Mar 30, 2025 21:00 LB ARMSTRONG RESIDENT Apr 02, 2025 08:17 DALLAS FLORES MD Apr 02, 2025 10:39
[2025-03-31] VITALS (7 sets, daily range): BP systolic 136–151; BP diastolic 72–80; PULSE 59–74; RESP 16–20; TEMP 97.9–98.8; O2SAT 94–97
[2025-03-31 06:10] LABS: Hematocrit 35.6 % (36.0-46.0); Hemoglobin 12.4 g/dL (12.2-16.2); Mean Corpuscular Hemoglobin 31.2 pg (28.0-32.0); Mean Corpuscular Volume 89.7 fL (80.0-100.0); Nucleated Red Blood Cells % 0.1 %
[2025-03-31 06:29] LABS: Anion Gap 7 (5-15); Carbon Dioxide 26 mmol/L (20-31); Potassium 3.6 mmol/L (3.5-5.1); Sodium 141 mmol/L (136-145)
[2025-03-31 06:30] LABS: Calcium 8.7 mg/dL (8.7-10.4)
[2025-03-31 06:31] LABS: Chloride 108 mmol/L (98-107)
[2025-03-31 06:35] LABS: BUN/Creatinine Ratio 12.3 (10.0-20.0); Glucose 85 mg/dL (74-106)
[2025-03-31 06:44] LABS: Blood Urea Nitrogen 8 mg/dL (9-23)
[2025-03-31] MEDS: REGADENOSON 0.4 MG/5 ML SYRG IV ONE ×2 (08:57→09:49)
[2025-03-31] MEDS: LOSARTAN POTASSIUM 25 MG TAB PO SCH (10:00)
--- NOTE | 2025-03-31 13:55 | DVHSR ---
APPROVED REPORT Exam: Nuclear Stress Test BMI: 0 Stress Test Details Stress Test: Pharmacologic stress testing performed using 0.4 mg of regadenoson per 5 mL given IV ov er 10 seconds. HR Resting HR: 64 bpmMax Heart Rate (APMHR): 151.416740 bpm Max HR Achieved: 99 bpmTarget HR (85% APMHR): 128.763315 bpm % of APMHR: 65.56 Recovery HR: 71 bpm BP Resting BP: 155/88 mmHg Recovery BP: 141/77 mmHg ECG Resting ECG: Sinus Rhythm Clinical Reason for Termination: Completed protocol Nurse Comments Recieved pt. from [facility]. A/Ox4 on RA. Connected to laboratory monitor, VS stable. PIV flushes well. Re viewed POC. Pt. verbalized understanding of procedure including risks and side effects, agrees for st ress testing. Lexiscan stress test performed per protocol. [facility] tech administered Cardiolite. Pt. tolerated well . Pt. stable, no change on exam. VS returned to baseline. Transferred to [facility] via wheelchair w/ te ch. Stress ECG Conclusion lvef 60% normal perfusion scan no severe ischemia septal infarct on ecg NM EXAM: Myocardial Perfusion REST/STRESS Imaging Protocol: Rest Tc-99m/Stress Tc-99m 2 days Resting Data Rest SPECT myocardial perfusion imaging was performed in supine position 45 minutes following the int ravenous injection of 9.1 mCi of Tc-99m Sestamibi. Time of rest injection: 15:11 Date: 03/30/2025 Time of rest imagin:11 Date: 03/30/2025 Administration Route: IV Administration Site: Right Hand Pharmacologic Stress Pharmacologic stress test was performed by injecting Regadenoson 0.4 mg IV push followed by the intra venous injection of 22.4 mCi of Tc-99m Sestamibi. Time of stress injection: 09:01 Date: 03/31/2025 Time of stress imagin:46 Date: 03/31/2025 Administration Route: IV Administration Site: Right Hand Gated Stress SPECT was performed 45 minutes after stress injection. The images were gated to evaluate regional wall motion and calculate left ventricular ejection fracti on. Stress only was performed in the Supine position. Nuclear Conclusion Nuclear Findings: negative for ischemia lvef 60% normal perfusion scan no severe ischemia septal infarct on ecg
[2025-04-02] MEDS ORDERED: ATOR20TA50 PO (08:16)
[2025-04-02] MEDS ORDERED: LOS25T GT (08:16)
[2025-04-02] MEDS ORDERED: ASPI-543 PO (08:16)
[2025-04-02] MEDS ORDERED: ERGO1CAP23 PO (08:22)
--- NOTE | 2025-04-03 06:26 | DVHDSRES ---
Discharge Summary Date of Admission Resident Creating Document: RAMÍREZ CORONEL Mar 28, 2025 at 22:46 Date of Discharge: Mar 31, 2025 Admitting Diagnosis ACS Labs/Diagnostic Data: Laboratory Results Test 03/31/25 04:55 03/29/25 10:00 03/29/25 08:52 03/29/25 08:20 White Blood Count 6.1 10^3/uL (4.4-10.8) Red Blood Count 3.97 10^6/uL (4.0-5.20) Hemoglobin 12.4 g/dL (12.2-16.2) Hematocrit 35.6 % (36.0-46.0) Mean Corpuscular Volume 89.7 fL (80.0-100.0) Mean Corpuscular Hemoglobin 31.2 pg (28.0-32.0) Mean Corpuscular Hemoglobin Concent 34.8 g/dL (32.0-36.0) Red Cell Distribution Width 13.2 % (11.8-14.3) Platelet Count 166 10^3/uL (140-450) Mean Platelet Volume 9.7 fL (6.9-10.8) Neutrophils (%) (Auto) 74.4 % (37.0-80.0) Lymphocytes (%) (Auto) 14.2 % (10.0-50.0) Monocytes (%) (Auto) 7.5 % (0.0-12.0) Eosinophils (%) (Auto) 3.8 % (0.0-7.0) Basophils (%) (Auto) 0.1 % (0.0-2.0) Neutrophils # (Auto) 4.6 10 ^3/uL (1.6-8.6) Lymphocytes # (Auto) 0.9 10 ^3/uL (0.4-5.4) Monocytes # (Auto) 0.5 10 ^3/uL (0-1.3) Eosinophils # (Auto) 0.2 10 ^3/uL (0-0.8) Basophils # (Auto) 0 10 ^3/uL (0-0.2) Nucleated Red Blood Cells 0.1 % Sodium Level 141 mmol/L (136-145) Potassium Level 3.6 mmol/L (3.5-5.1) Chloride Level 108 mmol/L (98-107) Carbon Dioxide Level 26 mmol/L (20-31) Anion Gap 7 (5-15) Blood Urea Nitrogen 8 mg/dL (9-23) Creatinine 0.65 mg/dL (0.550-1.02) Glomerular Filtration Rate Calc 95 mL/min (>90) BUN/Creatinine Ratio 12.3 (10.0-20.0) Serum Glucose 85 mg/dL (74-106) Calcium Level 8.7 mg/dL (8.7-10.4) Prothrombin Time 10.9 sec (9.3-11.8) Prothrombin Time INR 1.03 (0.9-1.15) Activated Partial Thromboplast Time 31.0 SEC (24.5-34.5) Hemoglobin A1c 5.2 % A1C (<5.7) Lactic Acid Level 1.4 mmol/L (0.4-2.0) Phosphorus Level 3.3 mg/dL (2.4-5.1) Magnesium Level 1.9 mg/dL (1.6-2.6) Total Bilirubin 0.4 mg/dL (0.2-1.0) Aspartate Amino Transferase (AST) 39 U/L (13-40) Alanine Aminotransferase (ALT) 30 U/L (7-40) Alkaline Phosphatase 57 U/L (46-116) Total Protein 6.3 g/dL (5.7-8.2) Albumin 3.4 g/dL (3.2-4.8) Triglycerides Level 132 mg/dL (< 150) Cholesterol Level 140 mg/dL (< 200) LDL Cholesterol 87 mg/dL (< 100) HDL Cholesterol 36 mg/dL (40-59) Vitamin B12 Level 531 pg/mL (211-911) Vitamin D 25-Hydroxy 25.9 ng/mL (30.0-100) Thyroid Stimulating Hormone (TSH) 2.13 uIU/mL (0.55-4.78) Urine Opiates Screen Neg (NEGATIVE) Urine Fentanyl Screen Neg (NEGATIVE) Urine Barbiturates Screen Neg (NEGATIVE) Urine Phencyclidine Screen Neg (NEGATIVE) Urine Amphetamines Screen Neg (NEGATIVE) Urine Benzodiazepines Screen Neg (NEGATIVE) Urine Cocaine Screen Neg (NEGATIVE) Urine Cannabinoids Screen Neg (NEGATIVE) Urine Color Light-yellow (Yellow) Urine Clarity Clear (Clear) Urine pH 7.0 (5.0-9.0) Urine Specific [place] 1.016 (1.001-1.035) Urine Protein Negative (Negative) Urine Ketones Negative (Negative) Urine Blood Trace /uL (Negative) Urine Nitrite Negative (Negative) Urine Bilirubin Negative (Negative) Urine Urobilinogen Normal mg/dL (Negative) Urine Leukocyte Esterase 1+ /uL (Negative) Urine RBC 15 /hpf (0 - 4) Urine Microscopic WBC 1 /HPF (0-5) Urine Squamous Epithelial Cells Few /hpf (<5) Urine Bacteria None seen /hpf (None Seen) Urine Mucus Few (None Seen) Urine Creatinine 78.29 mg/dL (30.0-125.0) Urine Protein/Creatinine Ratio 0.24 Urine Glucose Normal mg/dL (Normal) Urine Total Protein 18.4 mg/dL (1-14) Test 03/29/25 03:37 03/29/25 00:25 Troponin I High Sensitivity 188 ng/L (</=34) Direct Bilirubin < 0.1 mg/dL (<0.3) B-Type Natriuretic Peptide 175.34 pg/mL (0-100) Other Laboratory Tests 03/31/25 04:55 Brief Hx & Hospital Course: A 69-year-old female patient presents to the ER with complaints of retrosternal oppressive chest pain which radiates towards neck, back and lower body, associated with generalized weakness and bilateral lower limb claudication. She believes she started having these symptoms after receiving COVID-19 vaccination 2 weeks ago. The patient reports losing 40 lbs over a period of 7 months. She has dysphagia, loss of appetite. She also reports having headache associated with vomiting. She also reports having an episode of syncope 1 week ago while going to the bathroom. She denies complaints. She has never done screening colonoscopy or mammography. Past medical history: Denies Past surgical history: Cholecystectomy Family history: Multiple first-degree relatives have stomach, lung and kidney cancers Home medications: Nothing Smoking history: Smoking since last 30 years, half a pack a day. Denies any drugs, alcohol abuse Brief hospital course: Hypertensive urgency associated with NSTEMI type 2 and junctional rhythm, requiring aspirin, atorvastatin, antihypertensive medication. Cardiology consulted to rule out ischemia, completed stress test which was negative. Due to recent syncopal episode, completed head CT and carotid ultrasound which did not show significant pathology. Cervical spine x-ray showed no acute fracture, moderate multilevel degenerative disc disease of the cervical spine. Due to presence of intermittent claudication, completed BL lower extremity arterial doppler: Findings suggestive of moderate grade stenosis within the left [employer]. Patient was advised to follow up with PCP, DC clinic, GI specialist for further evaluation of her dysphagia, unintentional weight loss, possible malignancy, PAD and junctional rhythms. On the day of discharge, patient was hemodynamically stable, was tolerating diet, verbalized understanding of the discharge plan. The treatment discharge plan was discussed with the daughter in details. We will follow her up in DC clinic in a week. Goals of care discussed with patient for over 18 minutes: Full code status (initially she was a DNR/DNI, but then spoke with family and decided to change her status) Discussed plan with Dr. Flores, patient and nurses Examination Pt is lying on bed General Appearance: Alert, Oriented X3, Cooperative, Mild distress HEENT: Atraumatic, Mucous membranes moist/pink Respiratory: Clear to auscultation, Normal air movement, No added sounds Cardiovascular: Regular rate, Normal S1, split S2, No murmurs Abdominal/ : Active bowel sounds, Soft, no distention, no tenderness Extremities: No edema, Normal pulses, No tenderness/swelling Skin: No Significant rash, except past surgical scars Neuro: Normal speech, sensorimotor deficits none Psych/Mental Status: Mental status NL, Mood NL Nurse was there as inspection and testing supervisor during examination Operations or Procedures Cardiolite stress test: Nuclear Conclusion Nuclear Findings: negative for ischemia lvef 60% normal perfusion scan no severe ischemia septal infarct on ecg BL lower extremity arterial doppler: Findings suggestive of moderate grade stenosis within the left [employer]. This can be further characterized with CT angiogram of the lower extremities. Hemodynamically significant stenosis within the right posterior tibial artery, left anterior tibial artery. Head CT: No acute abnormality. Cervical apine x-ray: No acute fracture. Moderate multilevel degenerative disc disease of the cervical spine. Carotid doppler: No hemodynamically significant stenosis noted in the right carotid system. No hemodynamically significant stenosis noted in the left carotid system. CXR no acute disease Condition at Discharge: Stable Final Diagnosis/Problems List Hypertensive crisis NSTEMI type II Ruled out ACS Syncope probable vasovagal Junctional rhythm Moderate peripheral artery disease Chronic neck pain Microscopic hematuria Tobacco smoking - strongly counseled on cessation Severe malnutrition Discharge Disposition: Home Discharge Instruct/Medications Diet: Consistent carbohydrate, Cardiac 2g Na,low cholest Activity: No Restrictions, As Tolerated Follow Up/Referral: Follow-up in 1 week in the discharge clinic and PCP Medications: As per EMR Scheduled Aspirin (Aspir-Low), 81 MG PO DAILY Atorvastatin Calcium (Atorvastatin Calcium), 40 MG PO DAILY Ergocalciferol (Vitamin D 78684 Unit), 50,000 UNIT PO QWEEKLY Losartan Potassium (Losartan Potassium), 25 MG GT DAILY Discharge Statement: "Patient was advised to return to the ER or call 911 if any headaches, dizziness, shortness of breath, chest pain, abdominal pain, bleeding, fevers, or worsening of medical condition. Patient was counseled about treatment plan, medications, possible side effects, patientverbalized understanding. All questions were answered to the best of my ability. This discharge took greater then 30 minutes in planning, reviewing documentation, counseling the patient, and discussing with other team members." ASSESSMENT ASSESSMENT Assessment Ruled out ACS RAMÍREZ CORONEL RESIDENT Apr 03, 2025 06:26 LB ARMSTRONG RESIDENT Apr 04, 2025 07:56
== END 2025-03-31 18:33 | disposition home or self-care (01) | DRG 199 ==
LOC: ER 13:36 → OVERFLOW 22:46 → TELE-WESTW 03-29 03:11
PROVIDERS: ADMIT Student in an Organized Health Care Education/Training Program; ATTEND Emergency Medicine
DX: I16.0 Hypertensive urgency (principal); I21.A1 Myocardial infarction type 2; I10 Essential (primary) hypertension; F17.210 Nicotine dependence, cigarettes, uncomplicated; R31.29 Other microscopic hematuria; R73.9 Hyperglycemia, unspecified; M50.321 Other cervical disc degeneration at C4-C5 level; Z86.16 Personal history of COVID-19; Z80.8 Family history of malignant neoplasm of other organs or systems; Z90.89 Acquired absence of other organs
CPT/HCPCS: 36415; 70450; 71045; 72040; 78452; 80048; 80053; 80061; 80076; 80307; 81001; 82088; 82306; 82570; 82607; 83036; 83605; 83735; 83880; 84100; 84156; 84244; 84443; 84484; 85025; 85610; 85730; 93005; 93017; 93306; 93886; 93925; 96372; 99291; 99292; G0378; J2470